=== PATIENT | male | born 1965 | race Caucasian/White ===

== ENCOUNTER 2018-12-19 06:07 | Emergency (ER) | payer BC ==
[2018-12-19 06:17] VITALS: BP 158/89
[2018-12-19] MEDS ORDERED: cephALEXin 250 MG CAPSULE PO STA (06:25)
[2018-12-19] MEDS ORDERED: BACITRACIN OINT TOP STA (06:25)
--- NOTE | 2018-12-19 06:31 | ED Physician Documentation ---
History of Present Illness - Stated complaint Stated Complaint: NOSE/HEAD/EAR LAC - Chief complaint Chief Complaint: Laceration - History obtained from History obtained from: Patient - History of Present Illness Timing: How many hours ago (12) Pain level max: 0 Pain level now: 0 - Additonal information Additional information: mowing and a branch snapped back and struck him in the face. laceration to the R forehead, R nose and R ear. Nothing makes it better or worse. He applied antibiotic ointment last night. Tetanus is up-to-date Review of Systems Constitutional: denies: Fever GI: denies: Vomiting Musculoskeletal: denies: Neck pain, Back pain Neurologic: denies: Confused, Altered mental status, LOC PD PAST MEDICAL HISTORY - Past Medical History Past Medical History: Yes Cardiovascular: Hypertension Respiratory: None Neuro: None Endocrine/Autoimmune: None GI: None : None HEENT: None Psych: None Musculoskeletal: None Derm: None - Past Surgical History Past Surgical History: No - Present Medications Home Medications: Ambulatory Orders Medication Instructions Recorded Confirmed Cephalexin [Keflex] 500 mg PO Q6H #28 capsule 12/19/18 - Allergies Allergies/Adverse Reactions: Allergies Allergy/AdvReac Type Severity Reaction Status Date / Time No Known Drug Allergies Allergy Verified 12/19/18 06:17 - Social History Does the pt smoke?: No Smoking Status: Never smoker Does the pt drink ETOH?: Yes Does the pt have substance abuse?: No - Immunizations Immunizations are current?: Yes - POLST Patient has POLST: No PD ED PE NORMAL - Vitals Vital signs reviewed: Yes - General General: Alert and oriented X 3, No acute distress - HEENT HEENT: Moist mucous membranes - Neck Neck: Supple, no meningeal sign - Derm Derm: Warm and dry - Neuro Neuro: Alert and oriented X 3 - Free text exam Free text exam: superficial lacerations to the r forehead 0.5cm, R nose (0.2cm) and behind the R earlobe (0.2cm). Results - Vitals Vitals: Vital Signs - 24 hr 12/19/18 12/19/18 06:14 06:49 Temperature 36.8 C Heart Rate 66 Respiratory 17 17 Rate Blood Pressure 158/89 H O2 Saturation 98 Oxygen O2 Source Room air PD MEDICAL DECISION MAKING - ED course Complexity details: considered differential, d/w patient ED course: 53-year-old male with multiple superficial lacerations of the face. One on the forehead, one on the nose and one behind the right earlobe. None require sutures. Will utilize wound care at home. Tetanus is up-to-date. Will place on oral antibiotics for the ear wound. Patient counseled regarding signs and symptoms for which I believe and urgent re-evaluation would be necessary. Patient with good understanding of and agreement to plan and is comfortable going home at this time This document was made in part using voice recognition software. While efforts are made to proofread this document, sound alike and grammatical errors may occur. Departure - Departure Disposition: Home, Self Care Clinical Impression: Face lacerations Qualifiers: Encounter type: initial encounter Qualified Code(s): S01.81XA - Laceration without foreign body of other part of head, initial encounter Condition: Good Instructions: ED Laceration All Follow-Up: your,doctor in 4-5 days for wound check [Other] Prescriptions: Cephalexin [Keflex] 500 mg PO Q6H #28 capsule Comments: Take all antibiotics until gone. Return if you worsen. Follow-up with your doctor for further care. You should have a wound check in 4 to 5 days. Return sooner for redness, swelling or drainage from the wounds. Discharge Date/Time: 12/19/18 06:50
== END 2018-12-19 06:50 | disposition home or self-care (01) ==
LOC: ED 06:07
DX: S01.81XA Laceration without foreign body of other part of head, initial encounter (principal); S01.21XA Laceration without foreign body of nose, initial encounter; S01.311A Laceration without foreign body of right ear, initial encounter; W22.8XXA Striking against or struck by other objects, initial encounter; Y93.H9 Activity, other involving exterior property and land maintenance, building and construction; I10 Essential (primary) hypertension
CPT/HCPCS: 99283; A9270

== ENCOUNTER 2019-10-25 08:00 | Outpatient (CLI) | payer BC ==
[2019-10-25 11:50] LABS: BASOPHILS % (AUTO) 0.5 %; EOSINOPHILS # (AUTO) 0.1 10^3/uL (0.0-0.7); EOSINOPHILS % (AUTO) 2.2 %; HGB - HEMOGLOBIN 15.8 g/dL (14.0-18.0); LYMPHOCYTES # (AUTO) 1.4 10^3/uL (1.5-3.5); LYMPHOCYTES % (AUTO) 23.8 %; MEAN CORPUSCULAR HEMOGLOBIN 29.2 pg (27.0-31.0); MEAN CORPUSCULAR HGB CONC 34.3 g/dL (32.0-36.0); MEAN PLATELET VOLUME 10.9 fL (7.4-11.4); MONOCYTES # (AUTO) 0.5 10^3/uL (0.0-1.0); MONOCYTES % (AUTO) 7.7 %; NEUTROPHILS # (AUTO) 3.9 10^3/uL (1.5-6.6); NEUTROPHILS % (AUTO) 65.3 %; PLT - PLATELET COUNT 176 10^3/uL (130-450); RED BLOOD COUNT 5.41 10^6/uL (4.70-6.10); RED CELL DISTRIBUTION WIDTH 13.2 % (12.0-15.0)
[2019-10-25 12:09] LABS: BUN - BLOOD UREA NITROGEN 17 mg/dL (6-20); CARBON DIOXIDE - CO2 28 mmol/L (21-32); CHLORIDE 102 mmol/L (101-111); CREATININE 0.7 mg/dL (0.6-1.2); SODIUM 136 mmol/L (135-145)
[2019-10-25 12:10] LABS: ALBUMIN 4.6 g/dL (3.2-5.5); ALBUMIN/GLOBULIN RATIO 1.4 (1.0-2.2); ALKALINE PHOSPHATASE 65 IU/L (42-121); ALT ALANINE AMINOTRANSFERASE 58 IU/L (10-60); AST ASPARTATE AMINOTRANSFERASE 34 IU/L (10-42); BILIRUBIN,TOTAL 0.8 mg/dL (0.2-1.0); CALCIUM 8.8 mg/dL (8.5-10.3); CHOL/HDL RATIO 3.5 (<5.0); CHOLESTEROL 222 mg/dL; GLUCOSE 111 mg/dL (70-100); HDL CHOLESTEROL 63 mg/dL; LDL CHOLESTEROL,CALCULATED 146 mg/dL; LDL/HDL RATIO 2.3 (<3.6); TOTAL PROTEIN 7.8 g/dL (6.7-8.2); VLDL CHOLESTEROL 13 mg/dL
[2019-10-25 13:26] LABS: HB2 TOTAL 16.5 g/dL; HEMOGLOBIN A1C 0.59 g/dL; HEMOGLOBIN A1C % 5.4 % (4.6-6.2)
== END 2019-10-25 23:59 | disposition home or self-care (01) ==
LOC: LAB.WCP 08:00
PROVIDERS: ATTEND Registered Nurse
DX: Z00.00 Encounter for general adult medical examination without abnormal findings (principal)
CPT/HCPCS: 36415; 80053; 80061; 83036; 83721; 84443; 85025

== ENCOUNTER 2021-04-05 16:29 | Outpatient (CLI) | payer BC | END 2021-04-05 16:30 | disposition home or self-care (01) | LOC: COV 16:29 | PROVIDERS: ATTEND Family Medicine | DX: R09.81 Nasal congestion (principal); J34.89 Other specified disorders of nose and nasal sinuses; Z20.822 Contact with and (suspected) exposure to COVID-19 ==

== ENCOUNTER 2022-09-12 09:01 | Outpatient (CLI) | payer BC ==
[2022-09-12 14:37] LABS: BASOPHILS % (AUTO) 0.4 %; EOSINOPHILS # (AUTO) 0.1 10^3/uL (0.0-0.7); EOSINOPHILS % (AUTO) 1.4 %; HCT - HEMATOCRIT 46.3 % (42.0-52.0); LYMPHOCYTES # (AUTO) 1.4 10^3/uL (1.5-3.5); LYMPHOCYTES % (AUTO) 19.6 %; MEAN CORPUSCULAR HEMOGLOBIN 29.5 pg (27.0-31.0); MEAN CORPUSCULAR HGB CONC 34.6 g/dL (32.0-36.0); MEAN CORPUSCULAR VOLUME 85.4 fL (80.0-94.0); MEAN PLATELET VOLUME 10.9 fL (7.4-11.4); MONOCYTES # (AUTO) 0.6 10^3/uL (0.0-1.0); MONOCYTES % (AUTO) 8.2 %; NEUTROPHILS # (AUTO) 4.9 10^3/uL (1.5-6.6); NEUTROPHILS % (AUTO) 70.3 %; PLT - PLATELET COUNT 166 10^3/uL (130-450); RED BLOOD COUNT 5.42 10^6/uL (4.70-6.10); RED CELL DISTRIBUTION WIDTH 14.4 % (12.0-15.0); WHITE BLOOD COUNT 6.9 x10^3/uL (4.8-10.8)
[2022-09-12 15:01] LABS: ALBUMIN 4.1 g/dL (3.2-5.5); ALBUMIN/GLOBULIN RATIO 1.5 (1.0-2.2); ALKALINE PHOSPHATASE 68 IU/L (42-121); ALT ALANINE AMINOTRANSFERASE 29 IU/L (10-60); AST ASPARTATE AMINOTRANSFERASE 23 IU/L (10-42); BUN - BLOOD UREA NITROGEN 14 mg/dL (6-20); CALCIUM 9.2 mg/dL (8.5-10.3); CARBON DIOXIDE - CO2 29 mmol/L (21-32); CHLORIDE 98 mmol/L (101-111); CHOL/HDL RATIO 3.1 (<5.0); CHOLESTEROL 203 mg/dL; CREATININE 0.7 mg/dL (0.6-1.2); GFR - MDRD 117 (>89); GLUCOSE 95 mg/dL (70-100); HDL CHOLESTEROL 66 mg/dL; LDL CHOLESTEROL,CALCULATED 125 mg/dL; LDL/HDL RATIO 1.9 (<3.6); POTASSIUM 3.8 mmol/L (3.5-5.0); SODIUM 135 mmol/L (135-145); TOTAL PROTEIN 6.9 g/dL (6.7-8.2); TRIGLYCERIDES 59 mg/dL; VLDL CHOLESTEROL 12 mg/dL
[2022-09-12 15:38] LABS: THYROID STIMULATING HORMONE 1.71 uIU/mL (0.34-5.60)
[2022-09-12 22:21] LABS: ESTIMATED AVERAGE GLUCOSE 105 mg/dL (70-100); HEMOGLOBIN A1c% 5.3 % (4.27-6.07)
== END 2022-09-12 09:02 | disposition home or self-care (01) ==
LOC: LAB.S 09:01
PROVIDERS: ATTEND Registered Nurse
DX: I10 Essential (primary) hypertension (principal); R73.9 Hyperglycemia, unspecified; Z79.899 Other long term (current) drug therapy; Z13.220 Encounter for screening for lipoid disorders
CPT/HCPCS: 36415; 80053; 80061; 83036; 83721; 84443; 85025